=== PATIENT | male | born 1960 | race African-American/Black ===

== ENCOUNTER → 2016-06-05 | Outpatient (CLI) | payer BC | END | disposition home or self-care (01) | LOC: EDBD 14:36 → PCVCIMAG 14:36 | PROVIDERS: ATTEND Internal Medicine Cardiovascular Disease | DX: I10 Essential (primary) hypertension (principal); E78.00 Pure hypercholesterolemia, unspecified; E07.9 Disorder of thyroid, unspecified; R06.00 Dyspnea, unspecified | CPT/HCPCS: 93306; 93351; G0463 ==

== ENCOUNTER 2020-05-11 06:36 | Outpatient (CLI) | payer BC ==
[~2020-05-11] VITALS: Ht 165.1 cm; Wt 107.5 kg
[2020-05-11] VITALS (13 sets, daily range): BP systolic 135–169; BP diastolic 68–84
[2020-05-11] MEDS ORDERED: LIDOCAINE 1% Multi-Dose 20 ML VIAL. ONE (07:40)
[2020-05-11] MEDS ORDERED: IODIXANOL 320 MG/ML 100 ML VIAL. ONE (07:41)
[2020-05-11 08:10] LABS: CALCIUM 9.1 mg/dL (8.5-10.1); CREATININE 1.2 mg/dL (0.6-1.0); GFR 55.3; POTASSIUM 3.9 mmol/L (3.5-5.1)
[2020-05-11 08:12] LABS: HEMOGLOBIN 11.9 g/dL (12.0-15.5); RED BLOOD COUNT 4.47 x10^6/uL (3.50-5.40); RED CELL DISTRIBUTION WIDTH 14.5 % (11.5-14.5)
--- NOTE | 2020-05-11 08:12 | EKG ---
[facility] [address] [place] [address] Test Date: 2020-05-11 Test Time: 08:10:15 Pat Name: RODRÍGUEZ MILLAN Department: Room: Gender: F Bilingual Legal Assistant: [place] : 1960 Requested By: TOAN NUÑEZ Order Number: [id number] Reading MD: Measurements Intervals [place] Rate: 65 P: 66 NE: 150 QRS: 28 QRSD: 72 T: 168 QT: 384 QTc: 404 Interpretive Statements SINUS RHYTHM T ABNORMALITY IN ANTEROLATERAL LEADS ABNORMAL ECG RI6.02 No previous ECG available for comparison
[2020-05-11] MEDS ORDERED: ALBU2.5V8 INH (08:18)
[2020-05-11] MEDS ORDERED: CRESTOR40 MG PO (08:18)
[2020-05-11] MEDS ORDERED: TRAM50TA PO (08:18)
[2020-05-11] MEDS ORDERED: OLME1TAB23 PO (08:18)
[2020-05-11] MEDS ORDERED: MELO15TA23 PO (08:18)
[2020-05-11] MEDS ORDERED: FLUT9.9S NS (08:18)
[2020-05-11] MEDS ORDERED: NIFE30TA2 PO (08:18)
[2020-05-11] MEDS ORDERED: BUDE10.2 IH (08:18)
[2020-05-11] MEDS ORDERED: MONT10TA49 PO (08:18)
[2020-05-11 08:23] LABS: PROTHROMBIN TIME PATIENT 12.2 SEC (11.7-14.0)
[2020-05-11] MEDS ORDERED: MIDAZOLAM HCL/PF 2 MG/2 ML VIAL. ONE (08:36)
[2020-05-11] MEDS ORDERED: IODIXANOL 320 MG/ML 100 ML VIAL. IART ONE (09:00)
[2020-05-11] MEDS ORDERED: MIDAZOLAM HCL/PF 2 MG/2 ML VIAL. IV ONE (09:00)
[2020-05-11] MEDS ORDERED: LIDOCAINE 1% Multi-Dose 20 ML VIAL. INJ ONE (09:00)
[2020-05-11] MEDS ORDERED: 0.9 % SODIUM CHLORIDE 10 ML DISP.SYRIN. IV PRN (09:00)
[2020-05-11] MEDS ORDERED: IV NORMAL SALINE 1000ML BAG 1,000 ML IV SCH (09:00)
[2020-05-11] MEDS ORDERED: NITROGLYCERIN SUBLINGUAL 0.4 MG BOTTLE OF 25. SL PRN (09:00)
[2020-05-11] MEDS ORDERED: IV NORMAL SALINE 1000ML BAG 1,000 ML IV ONE (09:15)
--- NOTE | 2020-05-11 13:32 | NUR ---
Discharge Note: RODRÍGUEZ MILLAN Discharge instructions and discharge home medications reviewed with Friend and a copy given. All questions have been answered and understanding verbalized. The following instructions and handouts were given: groin site care and adult moderate sedation Discontinued lines and drains: Peripheral IV intact. Patient discharged to Home or Self Care withFriendvia Wheelchair
--- NOTE | 2020-05-11 17:20 | CARD ---
MR#: [id number] Date of Study: 05/11/2020 Ordering Physician: TOAN AYALA, Referring Physician: TOAN AYALA, Tech: RT Murphy(R) APPROVED REPORT Technologist: RT Murphy(R) Nurse: Huyen Bonner RN Procedure(s) performed: Left heart catheterization, selective coronary angiography, measurement of le ft ventricular end-diastolic pressures, supervision of conscious sedation FL TIME: 3 MINS DOSE: 57 GYCM3 CONTRAST: 78 ML MODERATE SEDATION: 30 MINS HISTORY The patient is a 59 year-old female with a history of : hypertension, Dyspnea on exertion. INDICATION The indication(s) include : positive stress test, dyspnea. CS Clinical Frailty Scale [facility] Clinical Frailty Scale: Managing Well Heart Failure Heart Failure: No CASE TECHNIQUE The patient was brought electively into the cardiac catheterization lab. A timeout was performed conf irming the patient's name, date of , procedure, and site of procedure. All necessary parties wer e wearing the appropriate personal protective equipment and radiation monitoring devices. After expla ining the risks and benefits of the procedure, informed consent was obtained.(See nursing notes for m edications administered). The right groin was sterilely prepped and draped. The right femoral groin w as infiltrated with 1% Lidocaine subcutaneous anesthesia. IV conscious sedation was used throughout p rocedure with appropriate monitoring and was performed in the presence of a registered nurse who was an independent trained observer other than the physician performing the procedure. During this case, Fluoroscopy and low osmolar contrast were used for imaging. Specimen(s) Removed: N/A Estimated Blood loss: 5 cc's. A 5 Jamaican sheath was inserted into the right femoral artery without difficulty. Harmon ry angiography was performed using coronary diagnostic catheters. The left coronary system was access ed and visualized with a Diagnostic catheter. The right coronary system was accessed and visualized w ith a Diagnostic catheter. The left ventricle was accessed and visualized with a Diagnostic catheter. Left ventricular/Aortic Valve gradient assessed on pullback. Coronary Angiography The patient's coronary anatomy is right dominant. The left main coronary artery is a large size vessel With mild distal tapering which is not flow-limi ting. The left main bifurcates to the left anterior descending and circumflex. The left anterior descending artery is a medium size vessel Which courses in the anterior interventri cular sulcus giving rise to septal diagonal branches. In the distal portion of the mid LAD the vessel is quite small and tortuous in areas of less than 50% stenosis are noted which are eccentric in stru cture. There is a 50% stenosis In the distal third of stated above. The first diagonal branch is a sm all size vessel With mild distal irregularities no high-grade lesion. The second diagonal branch is a small size vessel without significant stenosis. The third diagonal branch is a Diminutive size vesse l size vessel . The circumflex artery is a large size vessel Nondominant giving rise to 2 small marginal branches and terminating is a large posterolateral branch. The circumflex proper is mild luminal irregularities w ith no high-grade lesion. The first obtuse marginal branch is a Diminutive size vessel Without high-g rade lesion. The second obtuse marginal branch is a Diminutive size vessel . There is a 50% stenosis in the proximal segment which is eccentric. The third obtuse marginal branch is a Diminutive size ves margaret . The posterior marginal branch is a large branch stated above that courses on the lateral aspect of the heart is luminal irregularities with no high-grade lesions The right coronary artery is a Moderate to large size vessel . There is a 30 to 40% stenosis Acentric ally locatedin the proximal segment. It is not flow-limiting The right posterior descending artery is a small size vessel Without high-grade lesions identified. The right posterolateral branch is a Dimi nutive in size vessel Without significant lesions present. Left Ventriculography The left ventricular end diastolic pressure is 25-30 mmHg. There was no gradient across the aortic va lve upon pullback. Conclusion 1. Coronary disease, mild to moderate, nonobstructive 2. Abnormal hemodynamics with elevated left ventricular end-diastolic pressures Recommendations Cardiac Risk Reduction Program Medical Therapy Signed by : Toan Ayala, Electronically Approved : 05/11/2020 17:19:46
== END 2020-05-11 13:35 | disposition home or self-care (01) ==
LOC: CCL 06:36 → EDSEX 08:30 → CCL 13:35
PROVIDERS: ATTEND Internal Medicine
DX: R06.09 Other forms of dyspnea (principal); R94.39 Abnormal result of other cardiovascular function study; I25.10 Atherosclerotic heart disease of native coronary artery without angina pectoris; I10 Essential (primary) hypertension; G47.30 Sleep apnea, unspecified; M19.90 Unspecified osteoarthritis, unspecified site; Z90.710 Acquired absence of both cervix and uterus; Z98.890 Other specified postprocedural states; Z79.899 Other long term (current) drug therapy
CPT/HCPCS: 36415; 80048; 85027; 85610; 93005; 93458; 99152; 99153; C1769; C1892; J1644; J2250; J3490; Q9967; 93567